=== PATIENT | female | born 1985 | race Caucasian/White ===

== ENCOUNTER 2017-12-10 09:41 | Emergency (ER) | payer OTHER ==
[~2017-12-10] VITALS: Ht 157.5 cm; Wt 94.3 kg
[~2017-12-10 09:41] MED LIST: MAGN400S60 PO; [UNRECOGNIZED DRUG - CODE] PO
--- NOTE | 2017-12-10 09:53 | NUR ---
PATIENT AMBULATED TO BED 8.
[2017-12-10 09:56] VITALS: BP 130/85
--- NOTE | 2017-12-10 09:58 | NUR ---
32/F BIB SELF C/O NAUSEA AND YING ABDOMINAL PAIN RADIATING TO MID UPPER ABDOMINAL CRX X 4DAYS. SKIN IS PINK/WARM/DRY; AAOX4 WITH EVEN AND STEADY GAIT; LUNGS CLEAR BL; HR EVEN AND REGULAR; PT DENIES ANY FEVER, CP, SOB, OR COUGH AT THIS TIME; PATIENT STATES PAIN OF 8/10 AT THIS TIME. PATIENT POSITIONED FOR COMFORT; HOB ELEVATED; BEDRAILS UP X2; BED DOWN. ER MD MADE AWARE OF PT STATUS.
--- NOTE | 2017-12-10 10:14 | NUR ---
Patient being evaluated by DR CARTER at bedside.
[2017-12-10] MEDS ORDERED: ONDANSETRON 4 MG ODT PO ONE ×2 (10:20→11:30)
[2017-12-10] MEDS ORDERED: LIDOCAINE VISCOUS 2% 20 ML UDC PO ONE (10:20)
[2017-12-10] MEDS ORDERED: FAMOTIDINE 20 MG TAB PO ONE (10:20)
[2017-12-10] MEDS ORDERED: ALUMINUM HYD/MAG/SIMETHICONE 30 ML UDC PO ONE (10:20)
--- NOTE | 2017-12-10 10:57 | NUR ---
LAB AT BEDSIDE.
[2017-12-10 11:14] LABS: BASOPHILS # (AUTO) 0.1 K/uL (0.00-0.22); BASOPHILS % (AUTO) 0.8 % (0.0-2.0); EOSINOPHILS # (AUTO) 0.4 K/uL (0-0.4); EOSINOPHILS % (AUTO) 3.1 % (0.0-4.0); HEMATOCRIT 40.8 % (36-48); HEMOGLOBIN 12.9 g/dL (12.0-16.0); LYMPHOCYTES # (AUTO) 2.3 K/uL (2.5-16.5); LYMPHOCYTES % (AUTO) 20.2 % (20.5-51.1); MEAN CORPUSCULAR HEMOGLOBIN 24 pg (27-31); MEAN CORPUSCULAR HGB CONC 32 g/dL (33-37); MEAN CORPUSCULAR VOLUME 75.1 fL (80-94); MONOCYTES # (AUTO) 0.9 K/uL (0.8-1.0); NEUTROPHILS # (AUTO) 7.9 K/uL (1.8-7.7); NEUTROPHILS % (AUTO) 67.9 % (42.2-75.2); PLATELET COUNT (AUTO) 360 K/uL (140-450); RED BLOOD CELL COUNT(AUTO) 5.44 MIL/uL (4.20-5.40); RED CELL DISTRIBUTION WIDTH 17.5 % (11.6-13.7); WHITE BLOOD COUNT (AUTO) 11.6 K/uL (4.8-10.8)
[2017-12-10 12:09] LABS: ANION GAP 10.8 (8-16); CARBON DIOXIDE 28.1 mmol/L (21-32); CREATININE 0.7 mg/dL (0.6-1.3); POTASSIUM 3.9 mmol/L (3.5-5.1)
[2017-12-10] MEDS ORDERED: ACETAMINOPHEN 325 MG TAB PO ONE (12:10)
[2017-12-10 12:16] LABS: ALBUMIN 3.4 g/dL (3.4-5.0); TOTAL BILIRUBIN 0.4 mg/dL (0.0-1.0)
[2017-12-10 12:50] VITALS: BP 111/60
== END 2017-12-10 12:50 | disposition home or self-care (01) ==
LOC: MED 09:41
DX: K29.70 Gastritis, unspecified, without bleeding (principal); Z90.49 Acquired absence of other specified parts of digestive tract; Z88.1 Allergy status to other antibiotic agents; Z88.8 Allergy status to other drugs, medicaments and biological substances
CPT/HCPCS: 36415; 80053; 81002; 81025; 83690; 85025; 99284; S0119